=== PATIENT | female | born 1950 | race Caucasian/White ===

== ENCOUNTER → 2019-07-07 | Outpatient (CLI) | payer MEDICARE ==
--- NOTE | 2019-07-07 11:37 | PCVCIMAG ---
APPROVED REPORT Study performed: 07/07/2019 10:33:21 Exam: Stress Echocardiogram Indication: Chest pain , Hypertension Stress Nurse: Zaria Rodriguez RN Status: routine Ht: 5 ft 2 in HR: 71 bpm BP: 130/66 mmHg Rhythm: NSR Medical History Medical History: Diabetes, HTN, Hyperlipidemia Medications: Lisinopril Cardiac Risk Factors: HTN, Hyperlipidemia, DM Previous Cardiac Procedures: NONE Pretest Chest Pain Characteristics: No chest pain Exercise History: Physically active Procedure The patient underwent an Exercise Stress Test using the Cosme Protocol. Blood pressure, heart rate, and EKG were monitored. An Echocardiogram was performed by non destructive evaluation technician in four stages in quad fashion. At peak stress, four selected images were obtained and placed side by side with resting images for comparison. Stress Test Details Stress Test: Exercise stress testing was performed using a Cosme protocol. HR Resting HR: 71 bpmMax Heart Rate (APMHR): 153 bpm Max HR Achieved: 148 bpmTarget HR (85% APMHR): 130 bpm % of APMHR: 96 Recovery HR: 88 bpm HR response to stress: Normal HR response to stress BP Resting BP: 130/66 mmHg Max BP: 146/78 mmHg Recovery BP: 120/82 mmHg BP response to stress: Normal blood pressure response to stress. ECG Resting ECG: Sinus Rhythm Stress ECG: Sinus Rhythm ST Change: Non-ischemic Maximum ST Deviation: 0 mm Arrhythmia: None Recovery ECG: Sinus Rhythm Recovery ST Change: Non-ischemic Recovery ST Deviation: 0 mm Recovery Arrhythmia: None Clinical Reason for Termination: Maximal effort Stress Symptoms: NONE Exercise duration: 9 min 06 sec Highest Stage Achieved: Stage 4: 4.2 mph at 16% grade. Exercise capacity: 10.3 METs Overall Exercise Capacity for Age: Good Scale: Active Angina Score: None No complications. Stress ECG Conclusion The patient exercised according to the COSME protocol for 9:06 mins; achieving a work level of 10.3 METS. The resting heart rate of 71 bpm ojse e to a maximum heart rate of 148 bpm. This value represent 96% of the maximal, age-predicted heart rate. The resting blood pressure of 130/66 mmHg, jose e to a maximum blood pressure of 146/78mmHg. The exercise test was stopped due to fatigue. Torres Treadmill Score is 9.0 which is Low risk. Pre-Stress Echo The resting Echocardiogram showed normal left ventricular contractility with an estimated Ejection Fraction of about 55-60%. Normal wall motion in all segments on baseline images. Post-Stress Echo The stress Echocardiogram showed normal left ventricular contractility with an estimated Ejection Fraction of about 65-70%. Normal augmentation of wall motion in all segments on post stress images. Clinical No clinical or ECG evidence for ischemia. Conclusion Clinical Response: Non-ischemic Exercise Capacity: Average Stress ECG Response: Non-ischemic Stress Echo Images: Non-ischemic No clinical, EKG or echocardiographic evidence for ischemia. No echocardiographic evidence for exercise induced ischemia. Normal stress echocardiogram with maximal exercise stress. No prior study available for comparison. <Conclusion> No clinical, EKG or echocardiographic evidence for ischemia. No echocardiographic evidence for exercise induced ischemia. Normal stress echocardiogram with maximal exercise stress.
== END | disposition home or self-care (01) ==
LOC: PCVCIMAG 10:11
PROVIDERS: ATTEND Internal Medicine
DX: R07.9 Chest pain, unspecified (principal); I10 Essential (primary) hypertension; E78.5 Hyperlipidemia, unspecified; Z87.891 Personal history of nicotine dependence
CPT/HCPCS: 93325; 93351